=== PATIENT | male | born 1960 | race Caucasian/White ===

== ENCOUNTER 2022-12-23 08:54 | Outpatient (CLI) | payer BC, SELFPAY ==
--- NOTE | 2022-12-23 07:26 | W.ANESCHARGE ---
Anesthesia Charges Start Date/Time Anesthesia Start Date: 12/23/22 Anesthesia Start Time: 10:54 Stop Date/Time Anesthesia Stop Date: 12/23/22 Anesthesia Stop Time: 11:25
--- NOTE | 2022-12-23 13:26 | W.ANESCHARGE ---
Anesthesia Charges Start Date/Time Anesthesia Start Date: 12/23/22 Anesthesia Start Time: 10:54 Stop Date/Time Anesthesia Stop Date: 12/23/22 Anesthesia Stop Time: 11:25
== END 2022-12-23 08:55 | disposition home or self-care (01) ==
LOC: OP CLINIC 08:56
PROVIDERS: Visit Provider Surgery
DX: Z12.11 Encounter for screening for malignant neoplasm of colon (principal); K62.89 Other specified diseases of anus and rectum; K62.1 Rectal polyp; K57.30 Diverticulosis of large intestine without perforation or abscess without bleeding; Z86.010 Personal history of colon polyps
CPT/HCPCS: 45385; 811; 88305; J2704